=== PATIENT | female | born 1990 | race Caucasian/White ===

== ENCOUNTER 2016-10-07 01:56 | Emergency (ER) | payer BC, OTHER ==
[~2016-10-07] VITALS: Ht 167 cm; Wt 60.3 kg
--- NOTE | ~2016-10-07 | EKG ---
[address] [place] [address] ELECTROCARDIOGRAM REPORT Name: KADEEM REISABEL [id number] Admission: 10/07/16 Attend Phys: Discharge: 10/07/16 Date of : [birth year] Report #: [id number] THIS REPORT FOR: //name// [facility] ED Test Date: 2016-10-07 Test Time: 02:03:31 Pat Name: KADEEM REIS Department: Room: Gender: F Linux Engineer: DEVIN : 1990 Requested By: Minda Maynard Order Number: [id number] MD: Adalid Mera Measurements Intervals [place] Rate: 89 P: 71 VA: 161 QRS: -39 QRSD: 84 T: 41 QT: 362 QTc: 441 Interpretive Statements Sinus rhythm Left axis deviation Poor R-wave progression No previous ECG available for comparison Electronically Signed On 10-07-2016 9:08:10 [employer] by Adalid Mera [email or web address] <ELECTRONICALLY SIGNED> By: Adalid Mera MD, [facility] 10/07/16 [id number] Adalid Mera MD, FACC /EPI
[2016-10-07] MEDS ORDERED: OMEPRAZOLE 20 M20 M1 PO (02:18)
[2016-10-07 02:28] LABS: ABSOLUTE NEUTROPHILS 5.3 thou/uL (1.4-8.2); BASOPHILS 0.7 % (0.0-2.0); EOSINOPHILS 1.1 % (0.0-3.0); HEMATOCRIT 38.8 % (37.0-47.0); HEMOGLOBIN 13.3 gm/dL (12.0-15.0); LYMPHOCYTES 31.8 % (24.0-44.0); MCH 30.6 pg (26.0-34.0); MCHC 34.3 % (28.0-37.0); MCV 89.1 fL (80.0-100.0); MONOCYTES 7.1 % (1.0-8.0); PLATELET COUNT 306 thou/uL (150-400); POLYS 59.3 % (36.0-66.0); RBC 4.35 mil/uL (4.20-5.00); RDW 12.9 % (10.5-14.5)
[2016-10-07 02:38] LABS: ANION GAP 13 mmol/L (7-16); BUN 10 mg/dL (7-18); CALCIUM 9.3 mg/dL (8.5-10.1); CHLORIDE 102 mmol/L (98-107); CO2 22 mmol/L (21-32); CREATININE 0.9 mg/dL (0.6-1.3); GLUCOSE 110 mg/dL (70-99); MANUAL DIFF NO; POTASSIUM 3.3 mmol/L (3.5-5.1); SODIUM 137 mmol/L (136-145)
[2016-10-07 02:52] LABS: ALBUMIN 4.4 g/dL (3.4-5.0); ALKALINE PHOSPHATASE 59 U/L (46-116); NT-PRO BRAIN NAT PEPTIDE 38 pg/mL (<300); SGOT 20 U/L (15-37); SGPT 26 U/L (30-65); TOTAL BILIRUBIN 0.2 mg/dL (<0.1-1.0); TOTAL PROTEIN 8.6 g/dL (6.4-8.2); TROPONIN-I < 0.04 ng/mL (<0.04-0.07)
[2016-10-07 03:49] VITALS: BP 111/75
== END 2016-10-07 03:50 | disposition home or self-care (01) ==
LOC: ER 01:56
PROVIDERS: Emergency Medicine
DX: R07.89 Other chest pain (principal); F41.9 Anxiety disorder, unspecified; F10.99 Alcohol use, unspecified with unspecified alcohol-induced disorder